=== PATIENT | female | born 1995 | race Caucasian/White ===

== ENCOUNTER 2017-06-21 05:36 | Outpatient (CLI) | payer OTHER ==
[~2017-06-21] VITALS: Ht 135.9 cm; Wt 63.5 kg
[2017-06-21] MEDS ORDERED: PRD10T PO (13:23)
[2017-06-21] MEDS ORDERED: LEVO112T55 PO (13:23)
== END 2017-06-21 13:30 | disposition home or self-care (01) ==
LOC: PREOP 05:36
PROVIDERS: ATTEND Podiatrist Foot Surgery
DX: Z01.812 Encounter for preprocedural laboratory examination (principal); Z11.2 Encounter for screening for other bacterial diseases; B07.0 Plantar wart
CPT/HCPCS: 84703; 87081

== ENCOUNTER 2017-06-23 07:45 | Day surgery (SDC) | payer OTHER ==
--- NOTE | 2017-06-21 16:26 | HISTORY AND PHYSICAL ---
DATE OF SERVICE: The patient is to have outpatient surgery by Dr. Harrington. History by mother and daughter to have right foot surgery, may be left, has warts for at least 6 months. ALLERGIC TO MEDICATIONS: SULFA. MEDICATIONS NOW ON: Synthroid and prednisone for rash. PAST SURGICAL HISTORY: Tubes in the ears, tonsils. Cyst removed under armpits and several colonoscopies for bleeding. History by patient and mother. The patient has Down syndrome. FAMILY HISTORY: Brother diabetic, type 1. Grandparents, cancer. Denies asthma, TB or heart disease. REVIEW OF SYSTEMS: HEAD: Denies headache, dizziness or fainting, EYES, EARS, NOSE AND THROAT: Denies diplopia, tinnitus or sore throat. RESPIRATORY: Denies asthma, TB, coughing, congestion, smoking or wheezing. HEART: No history of heart problem, chest pain or heart murmur. GASTROINTESTINAL: Denies blood in stools, diarrhea, constipation, ulcer or vomiting. Has celiac disease. GENITOURINARY: Denies blood, pain or frequency. Last menstrual period 3-1/2 weeks ago. PHYSICAL EXAMINATION: GENERAL: The patient is a white female, well nourished, well developed, in no acute respiratory distress at rest. VITAL SIGNS: Pulse 76, blood pressure 90/70, height 53-1/2 inches, weight 138. EARS: No discharge noted. EYES: No conjunctivitis or icterus. THROAT: Noninflamed. NECK: Thyroid nonenlarged. No abnormal cervical lymphadenopathy noted. HEART: Regular rate and rhythm. LUNGS: Clear to auscultation. ABDOMEN: Soft. Liver and spleen nonpalpable. EXTREMITIES: No pretibial edema. Good dorsalis pedis pulses noted. ASSESSMENT AND PLAN: The patient is okay for surgery, will be on standby if has any problems. Job ID: [id number] DocumentID: [id number] Dictated Date: 06/21/2017 14:49:06 Correctional Officer Chief Date: 06/21/2017 15:43:40 Dictated By: DANE RODAS DO
[~2017-06-23] VITALS: Ht 135.9 cm; Wt 63.5 kg
[~2017-06-23 07:45] MED LIST: LEVO112T55 PO; PRD10T PO
[2017-06-23] MEDS ORDERED: LACTATED RINGERS 1,000 ML IV PRN ×2 (07:57→08:08)
[2017-06-23 07:59] VITALS: BP 115/79
[2017-06-23] MEDS ORDERED: ceFAZolin INJECTION 1,000 MG in NS (IVPB) 50 ML IV ONE (08:00)
[2017-06-23] MEDS ORDERED: MIDAZOLAM SYRUP (VERSED) 10MG/5ML UDC PO ONE (08:15)
[2017-06-23] MEDS ORDERED: SILVER SULFADIAZINE 50 GM CREAM ONE (08:57)
[2017-06-23] MEDS ORDERED: fentaNYL INJECTION 100 MCG/2 ML AMP ONE (08:58)
--- NOTE | 2017-06-23 09:04 | Progress Note-Pre Operative ---
Pre-Operative Progress Note H&P Reviewed The H&P was reviewed, patient examined and no changes noted. Date Seen by Provider: Jun 23, 2017 Time Seen by Provider: 09:00 Date H&P Reviewed: Jun 23, 2017 Time H&P Reviewed: 09:00 Pre-Operative Diagnosis: verruca plantaris bilateral DANE STEPHENS DPM Jun 23, 2017 9:04 am
[2017-06-23] MEDS ORDERED: NEO/POLY/BAC (NEOSPORIN) OINT 15 GM TUBE ONE (09:49)
[2017-06-23] MEDS ORDERED: LIDOCAINE PF 2% 5 ML (XYLOCAINE) VIAL ONE (09:51)
[2017-06-23] MEDS ORDERED: proPOfol 200 MG/20 ML (DIPRIVAN) VIAL IV ONE (09:51)
[2017-06-23] MEDS ORDERED: SEVOFLURANE (ULTANE) 15 ML INHAL SOLN ONE (09:51)
[2017-06-23] MEDS ORDERED: ONDANSETRON 4 MG/2 ML (SDV) Z0FRAN ONE (09:52)
[2017-06-23] MEDS ORDERED: ONDANSETRON 4 MG/2 ML (SDV) Z0FRAN IVP PRN (10:15)
[2017-06-23] MEDS ORDERED: morphine INJ 10 MG/ML 1ML (SYR OR VIAL) IVP PRN (10:15)
[2017-06-23] MEDS ORDERED: MEPERIDINE (DEMEROL) INJ 50 MG/ML IVP PRN (10:15)
--- NOTE | 2017-06-23 10:17 | Progress Note-Post Operative ---
Post-Operative Progess Note Surgeon (s)/Injection Molding Operator (s) Surgeon DANE STEPHENS DPM Injection Molding Operator: none Pre-Operative Diagnosis verruca plantarus bilat Post-Operative Diagnosis same Procedure & Operative Findings Date of Procedure 06/23/17 Procedure Performed/Findings verruca plantaris right foot 2 cm in diameter verruca plnataris lef foot 3 mm in diameter Anesthesia Type local with sedation Estimated Blood Loss Estimated blood loss (mL): min Specimens/Packing Specimens Removed verruca from right heel DANE STEPHENS DPM Jun 23, 2017 10:17 am
--- NOTE | 2017-06-23 10:17 | Discharge Instructions ---
Discharge Instructions Discharge Medications New, Converted or Re-Newed RX: RX Given to Pt/Family Patient Instructions Patient Instructions 1. Follow up in office in 2 weeks. 2. Diet as tolerated. 3. Activity as tolerated. Activity & Diet Activity as Tolerated: Yes DANE STEPHENS DPM Jun 23, 2017 10:17 am
[2017-06-23] MEDS ORDERED: LACTATED RINGERS 1,000 ML IV SCH (10:34)
[2017-06-23 11:00] VITALS: BP 105/70
[2017-06-23 11:25] VITALS: BP 94/61
[2017-06-23 11:55] VITALS: BP 105/62
[2017-06-23 12:00] VITALS: BP 105/62
--- NOTE | 2017-06-23 18:50 | OPERATIVE REPORT ---
DATE OF SERVICE: 06/23/2017 PREOPERATIVE DIAGNOSIS: Verruca plantaris, bilateral. POSTOPERATIVE DIAGNOSIS: Verruca plantaris, bilateral. NAME OF THE OPERATION: Excision, blunt dissection and chemocautery of verruca plantaris, bilateral. DESCRIPTION OF OPERATION: With the patient in the supine position having been affected by local anesthesia with sedation, sterile area was prepped with Betadine. The lesion on the plantar aspect of the right heel measuring approximately 3 mm in diameter was identified and incised circumferentially. A curette was used to resect the verrucous tissue from the normal tissue surrounding the verruca, which measured approximately 2 cm in diameter on the right heel and was incised circumferentially down to the dermal-epidermal junction and a 2-0 curette was then used to resect the wart from the normal tissue surrounding this. This was done at the dermal-epidermal junction. The area was inspected for any other residual verrucous tissue and none was noted. An 88% phenol was then used to cauterize the base and borders of the resected lesions to eradicate any remaining verrucous cells. The area was cleansed thoroughly with alcohol. Silvadene and a corrective compressive dressing were applied bilateral and covered with circular Coban. The patient tolerated the procedure well with minimal blood loss. Left the OR to [facility] in apparent good condition. She is to be seen in the office in 2 weeks for appropriate followup care. Job ID: [id number] DocumentID: [id number] Dictated Date: 06/23/2017 10:44:58 Leather Tanner Date: 06/23/2017 18:49:56 Dictated By: DANE STEPHENS DPM
== END 2017-06-23 12:00 | disposition home or self-care (01) ==
LOC: SDC 07:45
PROVIDERS: ATTEND Podiatrist Foot Surgery
DX: B07.0 Plantar wart (principal); Q90.9 Down syndrome, unspecified